=== PATIENT | female | born 1950 | race Caucasian/White ===

== ENCOUNTER 2017-11-01 18:21 | Emergency (ER) | payer BC, MEDICARE, OTHER ==
[2017-11-01 18:50] VITALS: BP 148/95
--- NOTE | 2017-11-01 19:30 | UC ---
Lower Extremity/Ankle HPI - HPI Summary HPI Summary: The patient is a 67 y/o F presenting to [facility] with a chief complaint of tenderness, pain, and swelling in the upper thigh of the LLE starting today. The burning pain is not currently present, and is not onset or relieved by any factors. She denies SOB or CP. She has hx of thyroid disease. - History of Current Complaint Chief Complaint: UCLowerExtremity Stated Complaint: SWOLLEN LEG Time Seen by Provider: 11/01/17 19:09 Hx Obtained From: Patient Onset/Duration: Sudden Onset, Lasting Hours - today, Still Present Severity Initially: Mild Severity Currently: Mild Pain Intensity: 0 Pain Scale Used: 0-10 Numeric Aggravating Factor(s): Nothing Alleviating Factor(s): Nothing Able to Bear Weight: Yes Legs: 1 - burning sensation, swelling, pain, and tenderness in the upper LLE - Allergies/Home Medications Allergies/Adverse Reactions: Allergies Allergy/AdvReac Type Severity Reaction Status Date / Time No Known Allergies Allergy Verified 11/01/17 20:13 Home Medications: Home Medications Prednisolone Acetate/Pf [Prednisolone Acet 1% Eye Drop] 5 ml OTIC DAILY [History Confirmed 11/01/17] PMH/Surg Hx/FS Hx/Imm Hx Endocrine History: Thyroid Disease, Other Other Endocrine History: NEGATIVE: diabetes Cardiovascular History: Other Other Cardiovascular History: NEGATIVE: HTN - Surgical History Surgical History: Yes Surgery Procedure, Year, and Place: eye surgeries in past six months - Family History Known Family History: Positive: Hypertension - Social History Alcohol Use: Weekly Alcohol Amount: every two weeks Substance Use Type: None Smoking Status (MU): Former Smoker Review of Systems Respiratory: Other - NEGATIVE: SOB Cardiovascular: Other - NEGATIVE: CP Musculoskeletal: Other: - swelling and pain in left lower extremity with burning sensation All Other Systems Reviewed And Are Negative: Yes Physical Exam - Summary Physical Exam Summary: VITAL SIGNS: Reviewed. GENERAL: Patient is a well-developed and nourished female who is lying comfortable in the stretcher. Patient is not in any acute respiratory distress. HEAD AND FACE: Normocephalic EYES: PERRLA, EOMI x 2. EARS: Hearing grossly intact. MOUTH: Oropharynx within normal limits. NECK: Supple, trachea is midline, no adenopathy, no JVD, no carotid bruit. CHEST: Symmetric, no tenderness at palpation LUNGS: Clear to auscultation bilaterally. No wheezing or crackles. CVS: Regular rate and rhythm, S1 and S2 present, no murmurs or gallops appreciated. ABDOMEN: Soft, non-tender. Bowel sounds are normal. No abdominal abnormal pulsations. EXTREMITIES: Full ROM in all major joints, no edema, no cyanosis or clubbing. Left lower extremity compared to the right shows a slight increase in size, especially around thigh and lower leg NEURO: Alert and oriented x 3. No acute neurological deficits. Speech is normal and follows commands. SKIN: Dry and warm Triage Information Reviewed: Yes Vital Signs: Initial Vital Signs Temp 98.8 F 11/01/17 18:44 Pulse 77 11/01/17 18:44 Resp 16 11/01/17 18:44 BP 148/95 11/01/17 18:44 Pulse Ox 100 11/01/17 18:44 Vital Signs Reviewed: Yes Lower Extremity Course/Dx - Course Course Of Treatment: Patient is a 67-year-old female presenting to the urgent care with chief complaint of left lower extremity swelling. Patient denies any history of trauma or heavy lifting. The patient spoke with the primary care physician and he requested her to come to the urgent care to rule out DVT. Ultrasound is unavailable in the urgent care therefore the patient was transferred to the emergency department for further workup and management. Patient denies any shortness of breath or chest pain. She is hemodynamically stable. Patient declined ambulance transfer. She will drive herself to the emergency department. - Differential Dx/Diagnosis Provider Diagnoses: Left lower extremity swelling Discharge - Sign-Out/Discharge Documenting (check all that apply): Patient Departure - Patient will be discharged with instruction to go to ED immediately. All imaging exams completed and their final reports reviewed: No Studies - Discharge Plan Condition: Stable Disposition: HOME-RECOMMEND TO ED Patient Education Materials: Leg Edema (ED) Referrals: [facility] [place] [facility]IAN REFERRAL [Outside] Additional Instructions: Patient will be discharged to the emergency room for further workup and management. The patient declined ambulance transfer. - Billing Disposition and Condition Condition: STABLE Disposition: Home-Recommend to ED - Attestation Statements Document Initiated by Lenoraibe: Yes Documenting Scribe: Anu Lenz Provider For Whom Dinorah is Documenting (Include Credential): Dr. Chai Tillman MD Scribe Attestation: I, Anu Lenz, scribed for Dr. Chai Tillman MD on 11/01/17 at 2115. Scribe Documentation Reviewed: Yes Provider Attestation: The documentation as recorded by the Anu maria accurately reflects the service I personally performed and the decisions made by me, Dr. Chai Tillman MD
== END 2017-11-01 19:33 | disposition home health service (06) ==
LOC: UCEAST 18:21
DX: M79.89 Other specified soft tissue disorders (principal); M79.652 Pain in left thigh; Z87.891 Personal history of nicotine dependence
CPT/HCPCS: 99212; G0463

== ENCOUNTER 2017-11-01 19:55 | Emergency (ER) | payer MEDICARE, OTHER ==
[2017-11-01 20:13] VITALS: BP 158/91
--- NOTE | 2017-11-01 21:03 | ED ---
Lower Extremity - HPI Summary HPI Summary: This patient is a 67 year old F presenting to [facility] with a chief complaint of LLE edema since 10/26/17. She endorses PMHx osteoarthritis in left knee, and that her LLE is more swollen than right at baseline, but this week there has been gradually more swelling in the left than normal. She endorses a deer tick bite 1 month ago. Pt denies pain, CP, SOB, erythema, warmth, and calf tenderness. She endorses FHx CVAs, but denies PEs and DVT Hx for self and family. She denies PMHx of cardiac problems. - History of Current Complaint Chief Complaint: EDExtremityLower Stated Complaint: LT LEG SWELLING Time Seen by Provider: 11/01/17 20:24 Hx Obtained From: Patient Mechanism Of Injury: Unknown Onset of Pain: Prior to Arrival Onset/Duration: Still Present Severity Initially: Mild Severity Currently: Mild Pain Intensity: 0 Pain Scale Used: 0-10 Numeric Timing: Constant Location: Is Discrete @ - LLE knee area Associated Signs And Symptoms: Positive: Swelling, Fever. Negative: Redness, Bruising, Knee Pain Aggravating Factor(s): Nothing Alleviating Factor(s): Nothing Able to Bear Weight: Yes - Allergies/Home Medications Allergies/Adverse Reactions: Allergies Allergy/AdvReac Type Severity Reaction Status Date / Time No Known Allergies Allergy Verified 11/01/17 20:13 PMH/Surg Hx/FS Hx/Imm Hx Endocrine/Hematology History: Reports: Hx Thyroid Disease Cardiovascular History: Denies: Hx Pacemaker/ICD Respiratory History: Denies: Hx Lung Cancer GI History: Denies: Hx Ileostomy History: Denies: Hx Dialysis Musculoskeletal History: Reports: Hx Arthritis Sensory History: Denies: Hx Legally Blind, Hx Deafness Opthamlomology History: Denies: Hx Legally Blind EENT History: Denies: Hx Deafness Neurological History: Denies: Hx Dementia Psychiatric History: Denies: Hx Autism, Hx Schizophrenia - Surgical History Surgery Procedure, Year, and Place: eye surgeries in past six months Infectious Disease History: No Infectious Disease History: Denies: Traveled Outside the [place] in Last 30 Days - Family History Known Family History: Positive: Hypertension, Other - CVA both parents - Social History Alcohol Use: Weekly Alcohol Amount: every two weeks Substance Use Type: Reports: None Smoking Status (MU): Former Smoker Review of Systems Positive: Fever Negative: Chest Pain Negative: Shortness Of Breath Positive: Edema. Negative: Arthralgia, Myalgia, Other - calf-tenderness Negative: Other - erythema, warmth All Other Systems Reviewed And Are Negative: Yes Physical Exam - Summary Physical Exam Summary: Appearance: Well-appearing, Well-nourished, lying in bed comfortable Skin: Warm, dry, no obvious rash Eyes: sclera anicteric, no conjunctival pallor ENT: mucous membranes moist Neck: deferred Respiratory: No signs of respiratory distress Cardiovascular: Appears well perfused, pulses are nml Abdomen: deferred Musculoskeletal: left leg shows chronic swelling of left knee joint without associated redness or tenderness. Lower leg appears mildly swollen compared to the right, but no tenderness, redness, or warmth. Neurological: Awake and alert, mentation is normal, speech is fluent and appropriate Psychiatric: affect is normal, does not appear anxious or depressed Triage Information Reviewed: Yes Vital Signs On Initial Exam: Initial Vitals Temp Pulse Resp BP Pulse Ox 100.4 F 71 18 158/91 99 11/01/17 20:10 11/01/17 20:10 11/01/17 20:10 11/01/17 20:10 11/01/17 20:10 Vital Signs Reviewed: Yes Diagnostics - Vital Signs Vital Signs Temp Pulse Resp BP Pulse Ox 11/01/17 20:10 100.4 F 71 18 158/91 99 - Laboratory Lab Statement: Any lab studies that have been ordered have been reviewed, and results considered in the medical decision making process. - Ultrasound No standard instances Ultrasound Interpretation: No Acute Changes Ultrasound Interpretation Completed By: Radiologist - Normal LLE duplex venous US. Dr. Perez has reviewed this report. Re-Evaluation - Re-Evaluation First Eval Re-Evaluation Time: 21:46 Change: Unchanged Comment: Discussed pt's fever, pt is concerned about lyme's disease, will treat with ABx. Lower Extremity Course/Dx - Course Course Of Treatment: A 67-year-old F presents to the ED with a CC of steadily worsening LLE edema over the past week. (+) deer tick bite 1 month ago, swelling. (-) associated pain, warmth, erythema, CP, SOB, and calf tenderness. PMHx osteoarthritis in left knee, baseline swelling, but today more than baseline. FHx CVA but no DVT, PEs. A duplex LLE venous US was (-). - Diagnoses Provider Diagnoses: Osteoarthritis Discharge - Sign-Out/Discharge Documenting (check all that apply): Patient Departure - discharge - Discharge Plan Condition: Good Disposition: HOME Prescriptions: DOXYcycline CAP(*) [DOXYcycline 100MG CAP(*)] 100 mg PO BID 14 Days #28 cap Patient Education Materials: Osteoarthritis (ED), Fever in Adults (ED) Referrals: Louise Monteiro MD [Primary Care Provider] - Additional Instructions: Your US did not show anything worrisome, such as a blood clot in the veins of the leg. I suspect the recent swelling you have had is some synovial fluid leaking out of your knee joint, which is fairly common with osteoarthritis. It should improve on its own and does not require any specific treatment. - Billing Disposition and Condition Condition: GOOD Disposition: Home - Attestation Statements Document Initiated by Lenoraibchandler: Yes Documenting Scribe: Santos Hutchinson Provider For Whom Scribe is Documenting (Include Credential): Dr. Ángel Perez MD Scribe Attestation: I, Santos Hutchinson, scribed for Dr. Ángel Perez MD on 11/04/17 at 1146. Scribe Documentation Reviewed: Yes Provider Attestation: The documentation as recorded by the Santos maria accurately reflects the service I personally performed and the decisions made by me, Dr. Ángel Perez MD
--- NOTE | 2017-11-01 21:18 | RAD ---
EXAM: US Duplex Left Lower Extremity Veins CLINICAL HISTORY: 67 years old, female; Signs and symptoms; Swelling of limb; Lower extremity, left; Additional info: Pain, swelling, R/O dvt TECHNIQUE: Real-time duplex ultrasound scan of the left lower extremity veins integrating B-mode two-dimensional vascular structure, Doppler spectral analysis, color flow Doppler imaging and compression. COMPARISON: No relevant prior studies available. FINDINGS: Deep veins: Normal. No DVT in the visualized common femoral, femoral, proximal deep femoral or popliteal veins. The veins demonstrate normal color flow, are normally compressible, with normal phasic flow and/or augmentation response. Superficial veins: Normal. No thrombus in the visualized great saphenous vein. Soft tissues: Normal. No popliteal cyst. IMPRESSION: Normal left lower extremity duplex venous ultrasound.
== END 2017-11-01 21:56 | disposition home or self-care (01) ==
LOC: ED 19:55
DX: M17.12 Unilateral primary osteoarthritis, left knee (principal); R60.0 Localized edema; Z87.891 Personal history of nicotine dependence; M79.89 Other specified soft tissue disorders; M79.652 Pain in left thigh
CPT/HCPCS: 99282

== ENCOUNTER 2018-10-09 23:38 | Emergency (ER) | payer MEDICARE ==
[2018-10-10] MEDS ORDERED: Gelfoam 12-7 ADSORBABL SPONGE* 1 EA SPONGE ONE (01:15)
[2018-10-10] MEDS ORDERED: Gelfoam 12-7 ADSORBABL SPONGE* 1 EA SPONGE TOPICAL ONE (01:15)
[2018-10-10 01:43] LABS: ABS Lymphocytes 1.1 10^3/ul (1.0-4.8); ABS Monocytes 0.3 10^3/ul (0-0.8); ABS Neutrophils 4.2 10^3/ul (1.5-7.7); Eosinophil % 0.5 %; Hematocrit 39 % (35-47); Hemoglobin 13.3 g/dL (12.0-16.0); Lymphocyte % 19.3 %; Mean Corpuscular HGB Conc 35 g/dL (31-36); Mean Corpuscular Hemoglobin 30 pg (27-31); Mean Corpuscular Volume 86 fL (80-97); Platelet Count 195 10^3/uL (150-450); Red Blood Count 4.51 10^6 /uL (3.70-4.87); Red Cell Distribution Width 14 % (10-15); White Blood Count 5.6 10^3/uL (3.5-10.8)
[2018-10-10] MEDS ORDERED: Lidocaine 1% w EPI 1:100,000* MDV 20 ML VIAL INJ ONE (02:24)
[2018-10-10] MEDS ORDERED: Lidocaine 2% w/ EPI 1:200,000* 20 ML SDV VIAL ONE (02:42)
[2018-10-10] MEDS ORDERED: Lidocaine 2% w/ EPI 1:200,000* 20 ML SDV VIAL INJ ONE (02:43)
--- NOTE | 2018-10-10 03:08 | ED ---
Skin Complaint - HPI Summary HPI Summary: 68-year-old female presents via EMS with reports of bleeding from a surgical incision to her scalp. Patient reports she had multiple epidermoid cysts removed from her scalp at [facility] earlier today. She noted a large amount of blood from an incision to the right temporal scalp. Attempted to stop with direct pressure prior to calling EMS. Denies anticoagulant use or hx of bleeding disorders. - History of Current Complaint Chief Complaint: EDGeneral Time Seen by Provider: 10/09/18 23:52 Stated Complaint: BLEEDING FROM SURG SITE PER EMS Hx Obtained From: Patient Pain Intensity: 0 - Allergy/Home Medications Allergies/Adverse Reactions: Allergies Allergy/AdvReac Type Severity Reaction Status Date / Time aspirin Allergy Stomach Verified 10/09/18 23:45 Cramps NSAIDS (Non-Steroidal Allergy Stomach Verified 10/09/18 23:45 Anti-Inflamma Cramps Home Medications: Home Medications Methimazole TAB* [Tapazole TAB*] 5 mg PO DAILY 10/09/18 [History Confirmed 10/09] PMH/Surg Hx/FS Hx/Imm Hx Endocrine/Hematology History: Reports: Hx Thyroid Disease Denies: Hx Anticoagulant Therapy, Hx Blood Disorders, Hx Unexplained Bleeding Cardiovascular History: Denies: Hx Pacemaker/ICD Respiratory History: Denies: Hx Lung Cancer GI History: Denies: Hx Ileostomy History: Denies: Hx Dialysis Musculoskeletal History: Reports: Hx Arthritis Sensory History: Denies: Hx Legally Blind, Hx Deafness Opthamlomology History: Denies: Hx Legally Blind Neurological History: Denies: Hx Dementia Psychiatric History: Denies: Hx Autism, Hx Schizophrenia - Surgical History Surgery Procedure, Year, and Place: eye surgeries in past six months Infectious Disease History: No Infectious Disease History: Denies: Traveled Outside the [place] in Last 30 Days - Family History Known Family History: Positive: Hypertension, Other - CVA both parents - Social History Occupation: Retired Lives: With Family Alcohol Use: Weekly Alcohol Amount: every two weeks Substance Use Type: Reports: None Smoking Status (MU): Former Smoker Review of Systems Negative: Fever, Chills Cardiovascular: Negative Respiratory: Negative Gastrointestinal: Negative Genitourinary: Negative Musculoskeletal: Negative Positive: Other - See HPI Neurological: Negative All Other Systems Reviewed And Are Negative: No Physical Exam - Summary Physical Exam Summary: GENERAL APPEARANCE: Well developed, well nourished, alert and cooperative, and appears to be in no acute distress. HEAD: Patient has multiple incision sites to her scalp with intact sutures. The incision to her right temporal scalp has 2 intact interrupted sutures significant oozing of blood from the proximal suture site. CARDIAC: Normal S1 and S2. No S3, S4 or murmurs. Rhythm is regular. There is no peripheral edema, cyanosis or pallor. Extremities are warm and well perfused. Capillary refill is less than 2 seconds. Peripheral pulses intact. LUNGS: Clear to auscultation without rales, rhonchi, wheezing or diminished breath sounds. ABDOMEN: Positive bowel sounds. Soft, nondistended, nontender. No guarding or rebound. No masses or hepatosplenomegally. MUSKULOSKELETAL: ROM intact to all extremities. No joint erythema or tenderness. Normal muscular development. Normal gait. SKIN: Skin normal color, texture and turgor. Triage Information Reviewed: Yes Vital Signs On Initial Exam: Initial Vitals Temp Pulse Resp BP Pulse Ox 97.8 F 68 14 149/109 98 10/09/18 23:39 10/09/18 23:39 10/09/18 23:39 10/09/18 23:39 10/09/18 23:39 Vital Signs Reviewed: Yes Procedures - Procedure Summary Procedure Summary: Procedure note: Suture replacement of incision to right temporal scalp. Informed consent was obtained before procedure started and the appropriate timeout was taken. Local anesthesia was achieved using 1.5 ml of lidocaine 2% with epinephrine. The proximal interrupted suture was removed and a figure of 8 suture was placed over the site of bleeding using 4-0 Prolene. No further bleeding was noted. Anticipatory guidance, as well as standard post-procedure care was discussed with patient. Return precautions are given. The patient tolerated the procedure well without complications. Patient is to follow up as previously scheduled for suture removal and evaluation of the incision. Diagnostics - Vital Signs Vital Signs Temp Pulse Resp BP Pulse Ox 10/09/18 23:47 76 98 10/09/18 23:39 97.8 F 68 14 149/109 98 - Laboratory Lab Results: Lab Results 10/10/18 Range/Units 01:34 WBC 5.6 (3.5-10.8) 10^3/uL RBC 4.51 (3.70-4.87) 10^6 /uL Hgb 13.3 (12.0-16.0) g/dL Hct 39 (35-47) % MCV 86 (80-97) fL MCH 30 (27-31) pg MCHC 35 (31-36) g/dL RDW 14 (10-15) % Plt Count 195 (150-450) 10^3/uL MPV 8.0 (7.4-10.4) fL Neut % (Auto) 74.7 % Lymph % (Auto) 19.3 % [place] % (Auto) 5.1 % Eos % (Auto) 0.5 % Baso % (Auto) 0.4 % Absolute Neuts (auto) 4.2 (1.5-7.7) 10^3/ul Absolute Lymphs (auto) 1.1 (1.0-4.8) 10^3/ul Absolute Monos (auto) 0.3 (0-0.8) 10^3/ul Absolute Eos (auto) 0.0 (0-0.6) 10^3/ul Absolute Basos (auto) 0.0 (0-0.2) 10^3/ul Absolute Nucleated RBC 0.0 10^3/ul Nucleated RBC % 0.0 Result Diagrams: 10/10/18 01:34 Lab Statement: Any lab studies that have been ordered have been reviewed, and results considered in the medical decision making process. Course/Dx - Course Course Of Treatment: 68-year-old female presents via EMS with reports of bleeding from a surgical incision to her scalp. Patient reports she had multiple epidermoid cysts removed from her scalp at [facility] earlier today. She noted a large amount of blood from an incision to the right temporal scalp. Attempted to stop with direct pressure prior to calling EMS. Denies anticoagulant use or hx of bleeding disorders. Afebrile. Hypertensive otherwise VSS. On arrival patient was noted to have a blood soaked gauze dressing that had been placed by EMS and a large amount of matted blood in her hair localized to the right scalp. The matted blood was cleaned up and there was significant oozing of blood from a single incision located to the right temporal scalp. There were 2 intact interrupted sutures with the bleeding noted at the proximal suture. Direct pressure was applied to the incision for approximately 20 minutes with no resolution in the bleeding. A CBC as obtained and was normal. I then tried using some GelFoam and reapplied direct pressure without resolution. The decision was then made to remove the interrupted suture and place a figure of 8 suture which achieved good hemostasis. The patient is to continue the wound care and follow up for suture removal as previously directed. Anticipatory guidance and warning symptoms were reviewed with the patient. Verbalizes understanding and agrees with POC. - Differential Diagnoses - Skin Complaint Differential Diagnoses: Other - thrombocytopenia - Diagnoses Provider Diagnoses: Postoperative hemorrhage from incision Discharge - Sign-Out/Discharge Documenting (check all that apply): Patient Departure Patient Received Moderate/Deep Sedation with Procedure: No - Discharge Plan Condition: Stable Disposition: HOME Patient Education Materials: Postoperative Bleeding (ED) Referrals: Louise Monteiro MD [Primary Care Provider] - Additional Instructions: You complete blood count performed in the emergency was normal. We were unable to control the bleeding with direct pressure therefore I removed one of the interrupted sutures and placed a figure of eight suture over the site of bleeding which was successful in stopping the bleeding. Follow you previous instructions for wound care and follow up for suture removal. Return to the emergency room if you have any further bleeding or concerns. - Billing Disposition and Condition Condition: STABLE Disposition: Home - Attestation Statements Provider Attestation: the patient was seen by the midlevel provider, it was determined by them that it was not necessary for me to see the patient, I was available for consult during the patient's visit in the ED. I did not establish and patient-physician relationship. The chart however has been reviewed and I am signing in an administrative capacity.
[2018-10-10] MEDS ORDERED: Bacitracin OINTMENT* 0.5% 0.5 oz TUBE TOPICAL ONE (03:12)
[2018-10-10 03:49] VITALS: BP 140/90
== END 2018-10-10 03:48 | disposition home or self-care (01) ==
LOC: ED 23:38
DX: L76.22 Postprocedural hemorrhage of skin and subcutaneous tissue following other procedure (principal); Z88.6 Allergy status to analgesic agent; E07.9 Disorder of thyroid, unspecified; Z79.899 Other long term (current) drug therapy; Z87.891 Personal history of nicotine dependence
CPT/HCPCS: 12001; 36415; 85025; 99282; A9270-GY